=== PATIENT | female | born 1960 | race Caucasian/White ===

== ENCOUNTER → 2024-05-12 | Outpatient (CLI) | payer OTHER ==
[~2024-05-12] MED LIST: C Complex500 MG PO; CEPH500 PO; CIPR500 PO; Digestive Enzy1 EACH PO; FLUC150A PO; MAGOXI400 PO; METO10 PO; ONDA4 PO; OXYACE5T PO; OXYACE7.5T PO; SULTRIDS PO
== END ==
LOC: LAB 13:50 → LAB SHORT 13:50
DX: I73.9 Peripheral vascular disease, unspecified (principal); B35.1 Tinea unguium; M79.674 Pain in right toe(s)
CPT/HCPCS: 85651

== ENCOUNTER 2024-07-17 01:09 | Day surgery (SDC) | payer OTHER ==
[2024-07-17] MEDS ORDERED: Lidocaine HCl 4% Cream 5 GM ONE (13:28)
== END 2024-07-17 23:00 | disposition home or self-care (01) ==
LOC: WOUND 01:09
DX: L97.512 Non-pressure chronic ulcer of other part of right foot with fat layer exposed (principal); I73.9 Peripheral vascular disease, unspecified; Z72.0 Tobacco use
CPT/HCPCS: A9270

== ENCOUNTER 2024-07-31 10:38 | Day surgery (SDC) | payer OTHER ==
[~2024-07-31] VITALS: Ht 162.6 cm; Wt 61.1 kg
[2024-07-31] VITALS (12 sets, daily range): BP systolic 115–198; BP diastolic 70–94
[~2024-07-31 10:38] MED LIST changes: +MAGNESIUM OXID400 M2 PO; +Percocet 5-3251 EACH PO; +TOCO1000 PO
[2024-07-31] MEDS ORDERED: DIGESTIVE WELL1 EACH PO (11:08)
[2024-07-31] MEDS ORDERED: NS 2,000 ML IV ONE (11:12)
[2024-07-31] MEDS ORDERED: Heparin Sodium 1000 Units/ML 10ML MDV ONE ×6 (11:12→18:19)
[2024-07-31] MEDS ORDERED: NS 250 ML IV ONE ×2 (11:12→15:33)
[2024-07-31] MEDS ORDERED: FentaNYL Citrate 50 MCG/ML 2 ML Injection ONE ×3 (11:24→16:24)
[2024-07-31] MEDS ORDERED: Midazolam HCl 1MG / ML 2ML Vial ONE (11:24)
[2024-07-31] MEDS ORDERED: HydrALAZINE HCl 20 MG / ML 1ML Vial ONE (12:01)
[2024-07-31] MEDS ORDERED: Nitroglycerin 2 MG/20 ML BTL ONE (12:37)
[2024-07-31] MEDS ORDERED: Verapamil HCL 2.5 MG/ML 2ML Injection ONE (12:37)
[2024-07-31] MEDS ORDERED: Protamine Sulfate 50 MG Amp ONE (13:31)
[2024-07-31] MEDS ORDERED: NS 500 ML IV ONE ×5 (13:41→19:31)
[2024-07-31] MEDS ORDERED: NS 100 ML IV ONE (14:08)
[2024-07-31] MEDS ORDERED: Labetalol HCL 5 MG/ML 4ML Injection (Single Dose) ONE (14:20)
[2024-07-31] MEDS ORDERED: Clopidogrel Bisulfate 300 MG Cap ONE (14:24)
[2024-07-31] MEDS ORDERED: Aspirin 325 MG Tab ONE (14:43)
[2024-07-31] MEDS ORDERED: Ondansetron HCl 2 MG / ML 2ML Vial ONE (14:50)
--- NOTE | 2024-07-31 15:07 | NUR ---
pt back to recovery from lab. pt a&o. groin site soft and non-tender per pt. no bleeding/hematoma noted. pedal site soft and non-tender per pt. no bleeding noted. family at bedside.
--- NOTE | 2024-07-31 15:22 | NUR ---
pulses present in r foot. unable to find pulses in l foot. dr lofton notified by artemio duong.
--- NOTE | 2024-07-31 15:26 | NUR ---
pt reports her l foot feels numb. dr lofton at bedside w/ ultrasound
[2024-07-31] MEDS ORDERED: NS 1,000 ML IV ONE ×2 (15:34→18:17)
[2024-07-31] MEDS ORDERED: Lactated Ringer's 1,000 ML IV ONE ×2 (15:45→16:56)
[2024-07-31] MEDS ORDERED: propofoL 50 ML IV ONE (16:01)
--- NOTE | 2024-07-31 16:08 | NUR ---
pt back to lab from recovery.
[2024-07-31] MEDS ORDERED: Metoclopramide HCl 5MG / ML 2ML Vial IV ONE ×2 (16:10→20:35)
[2024-07-31] MEDS ORDERED: HYDROmorphone HCl/Pf 1MG SYR IV ONE (16:30)
[2024-07-31 18:22] LABS: BASOPHILS ABSOLUTE AUTO 0.06 K/mm3 (0.00-0.23); BASOPHILS PERCENT AUTO 1 % (0-2); EOSINOPHILS ABSOLUTE AUTO 0.15 K/mm3 (0.00-0.68); EOSINOPHILS PERCENT AUTO 1 % (0-6); Hematocrit 34.5 % (33.0-51.0); Hemoglobin 11.5 g/dL (11.5-16.0); IMMATURE GRAN ABSOLUTE AUTO 0.05 K/mm3 (0.00-0.10); IMMATURE GRAN PERCENT AUTO 0 % (0-1); LYMPHOCYTES ABSOLUTE AUTO 1.71 K/mm3 (0.84-5.20); LYMPHOCYTES PERCENT AUTO 14 % (21-46); MONOCYTES PERCENT AUTO 7 % (4-13); Mean Corpuscular HGB 31.6 pg (26.0-34.0); Mean Corpuscular HGB Conc 33.3 g/dL (31.5-36.5); Mean Corpuscular Volume 95 fL (80-100); Mean Platelet Volume 10.6 fL (9.1-12.4); NEUTROPHILS ABSOLUTE AUTO 9.39 K/mm3 (1.96-9.15); NEUTROPHILS PERCENT AUTO 77 % (41-73); Platelet Count 167 K/mm3 (150-400); RDW Standard Deviation 48.7 fL (35.1-46.3); Red Blood Cell Count 3.64 M/mm3 (3.80-5.20); White Blood Cell Count 12.16 K/mm3 (4.00-11.30)
[2024-07-31] MEDS ORDERED: FentaNYL Citrate 50 MCG/ML 2 ML Injection IV ONE (20:20)
[2024-07-31] MEDS ORDERED: Regadenoson 0.4 MG/5 ML SYRINGE IV ONE (20:20)
[2024-07-31] MEDS ORDERED: Ondansetron HCl 2 MG / ML 2ML Vial IV ONE (20:20)
[2024-07-31] MEDS ORDERED: Dose Adjust by Pharmacy XX STA (21:09)
[2024-07-31] MEDS ORDERED: Heparin Sodium,Porcine/0.5 NS 500 ML IV SCH (21:10)
--- NOTE | 2024-07-31 21:29 | NUR ---
DR GAONA CONTACTED RE PT NOT ON CONTINUOUS HEPARIN INFUSION. ORDER OBTAINED TO BE CALCULATED DOSE PER PHARMACY FOR LIMB ISCHEMIA WITHOUT BOLUS DOSING. PT RETURNED TO ICU RM 1 BY AMBULANCE CREW. HEPARIN INFUSION STARTED W 2 RN VERIFICATION OF DOSE, NOTED IN EMAR. PT DISCHARGED W AMBULANCE CREW TO [facility].
--- NOTE | 2024-07-31 21:40 | NUR ---
admit/transfer 2013 received pt from [facility] with dr lofton and x2 nurses at bedside, pt alert and oriented, anxious, follows commands, able to make needs known, unit of prbc completed at 2019, sheath to right gorin sutured in and art line connented and patent, dressing changed at this time by [employer] [facility] nurse with chg dressing in place, dressing to left groin dry and intact, noted faint pulses to paul pedal, left leg remains pale but warm to touch, right foot warm, dressing to right great toe cdi and painful to touch, pt medicated with 100 fentanyl, 10 reglan and 2 mg zofran ivp per dr lofton, vo patent and draining to gravity, piv to right hand and left ac patent, afebrile, SR noted, bp stable map >65, 2049 ems at bedside for transfer to [facility] for vascular intervention. [address] [facility] from icu bed and care transferred to ems
[2024-07-31] MEDS ORDERED: Phenylephrine HCl 100 MCG/ML-NS 10MLSYR (1MG/10ML) IV ONE (22:12)
[2024-07-31] MEDS ORDERED: Midazolam HCl 1MG / ML 2ML Vial XX ONE (22:12)
[2024-07-31] MEDS ORDERED: Propofol 10mg/ml 20 ml Vial (Procedural) IV ONE (22:12)
== END 2024-07-31 21:30 | disposition short-term general hospital (02) ==
LOC: MHTC 10:38 → ICUE 16:55 → MHTC 21:30
PROVIDERS: Student in an Organized Health Care Education/Training Program
DX: I70.211 Atherosclerosis of native arteries of extremities with intermittent claudication, right leg (principal); L97.519 Non-pressure chronic ulcer of other part of right foot with unspecified severity
CPT/HCPCS: 36430; 76937; 85025; 85347; 86850; 86900; 86901; 86923; 99152; 99153; A9270; C1725; C1753; C1757; C1760; C1769; C1874; C1887; C1894; C2623; J0360; J1171; J1644; J2250; J2371; J2405; J2704; J2720; J2765; J3010; J7030; J7040; J7050; J7120; P9016; Q9967

== ENCOUNTER 2024-08-04 11:49 | Emergency (ER) | payer OTHER ==
[~2024-08-04] VITALS: Ht 162.6 cm; Wt 59.9 kg
[~2024-08-04 11:49] MED LIST changes: +DIGESTIVE WELL1 EACH PO
[2024-08-04 15:42] LABS: BASOPHILS ABSOLUTE AUTO 0.04 K/mm3 (0.00-0.23); BASOPHILS PERCENT AUTO 0 % (0-2); EOSINOPHILS ABSOLUTE AUTO 0.23 K/mm3 (0.00-0.68); EOSINOPHILS PERCENT AUTO 2 % (0-6); Hematocrit 34.5 % (33.0-51.0); Hemoglobin 11.5 g/dL (11.5-16.0); IMMATURE GRAN ABSOLUTE AUTO 0.02 K/mm3 (0.00-0.10); IMMATURE GRAN PERCENT AUTO 0 % (0-1); LYMPHOCYTES ABSOLUTE AUTO 1.54 K/mm3 (0.84-5.20); LYMPHOCYTES PERCENT AUTO 16 % (21-46); MONOCYTES ABSOLUTE AUTO 0.71 K/mm3 (0.16-1.47); MONOCYTES PERCENT AUTO 7 % (4-13); Mean Corpuscular HGB 31.7 pg (26.0-34.0); Mean Corpuscular HGB Conc 33.3 g/dL (31.5-36.5); Mean Corpuscular Volume 95 fL (80-100); Mean Platelet Volume 11.9 fL (9.1-12.4); NEUTROPHILS ABSOLUTE AUTO 7.19 K/mm3 (1.96-9.15); NEUTROPHILS PERCENT AUTO 74 % (41-73); Platelet Count 172 K/mm3 (150-400); RDW Coefficient Variation 13.6 % (11.7-14.2); RDW Standard Deviation 47.2 fL (35.1-46.3); Red Blood Cell Count 3.63 M/mm3 (3.80-5.20); White Blood Cell Count 9.73 K/mm3 (4.00-11.30)
[2024-08-04 16:10] LABS: Albumin, Blood 3.5 g/dL (3.4-5.0); Albumin/Globulin Ratio 0.9 (0.8-1.8); Bilirubin, Total 0.8 mg/dL (0.1-1.0); Bun/Creatinine Ratio 20.7 (12.0-20.0); Calcium, Blood 9.6 mg/dL (8.5-10.1); Creatinine, Blood 0.58 mg/dL (0.40-1.00); Globulin, Blood 3.8 g/dL (2.2-4.0); Potassium, Blood 3.9 mmol/L (3.5-5.5); Total Protein, Blood 7.3 g/dL (6.4-8.2)
[2024-08-04 16:17] LABS: Source, Urine Clean Catch
[2024-08-04 16:19] LABS: Appearance, Urine Cloudy (Clear); Blood, Urine 2+ (Neg); Color, Urine Amber (P-Yellow); Glucose Qualitative, Urine Neg (Neg); Ketones, Urine 3+ (Neg); Leukocyte Esterase, Urine 3+ (Neg); Nitrite, Urine Neg (Neg); Protein, Urine 2+ (Neg); Urobilinogen, Urine 1+ (Normal); pH, Urine 6.5 (5.0-8.0)
[2024-08-04 16:26] LABS: Bilirubin, Urine 1+ (Neg)
[2024-08-04 16:27] LABS: Calcium Oxalate Crystals Mod /hpf; White Blood Cells, Urine 25-50 /hpf (0-5)
[2024-08-04 16:28] LABS: Bacteria Many /hpf; Squamous Epithelial Cells Many /hpf (Few)
[2024-08-04] MEDS ORDERED: CefTRIAXone Sodium 1,000 MG in NS 100 ML IV ONE (18:30)
[2024-08-04] MEDS ORDERED: NS 1,000 ML IV SCH (18:30)
[2024-08-04 19:02] LABS: Influenza A, PCR NEGATIVE (NEGATIVE); Influenza B, PCR NEGATIVE (NEGATIVE); Resp Syncytial Virus, PCR NEGATIVE (NEGATIVE); SARS-Cov-2 (COVID-19) PCR, MMC NEGATIVE (NEGATIVE)
[2024-08-04] MEDS ORDERED: CEFD300 PO (19:53)
[2024-08-04 20:02] VITALS: BP 146/74
== END 2024-08-04 20:03 | disposition other institution (70) ==
LOC: ER 11:49
PROVIDERS: Student in an Organized Health Care Education/Training Program
DX: R42 Dizziness and giddiness (principal); N39.0 Urinary tract infection, site not specified; I10 Essential (primary) hypertension; Z87.891 Personal history of nicotine dependence; Z79.891 Long term (current) use of opiate analgesic; Z59.89 Other problems related to housing and economic circumstances
CPT/HCPCS: 0241U; 71046; 80053; 81001; 84484; 85025; 87086; 93005; 93010; 96365; 99284-25; J0696; J7030